=== PATIENT | female | born 1945 | race Caucasian/White ===

== ENCOUNTER 2019-12-01 15:05 | Observation (INO) ==
[2019-12-01] MEDS ORDERED: Naloxone 0.4 MG/ML INJ IVP PRN (20:11)
[2019-12-01] MEDS ORDERED: Acetaminophen 325 MG TABLET PO PRN (20:24)
[2019-12-01] MEDS ORDERED: *HR* Promethazine 25 MG/ML VIAL IVP PRN (20:24)
[2019-12-01] MEDS: 0.9 % Sodium Chloride 1,000 ML IVC SCH (20:56)
[2019-12-01] MEDS ORDERED: QUEtiapine Fumarate 25 MG TABLET PO SCH ×3 (21:00→22:15)
[2019-12-01] MEDS: FLUoxetine HCl 10 MG CAPSULE PO SCH (22:38)
[2019-12-02] MEDS: FLUoxetine HCl 10 MG CAPSULE PO SCH ×2 (10:10→21:17)
[2019-12-02] MEDS: Furosemide 40 MG TABLET PO SCH (10:10)
[2019-12-02] MEDS: 0.9 % Sodium Chloride 1,000 ML IVC SCH (10:11)
[2019-12-02] MEDS: Silver Sulfadiazine 50 GM TUBE TP SCH (10:53)
[2019-12-02 12:27] LABS: INR 1.1; Prothrombin Time 12.2 Seconds (9.4-12.1)
[2019-12-02 12:38] LABS: Calcium 9.2 mg/dL (8.6-10.3); Magnesium 2.1 mg/dL (1.6-2.6); Potassium 4.3 mEq/L (3.5-5.1)
[2019-12-02 14:02] LABS: Bilirubin,Urine Negative (Negative); Blood,Urine Trace-intact (Negative); Clarity,Urine Clear (Clear); Color,Urine Yellow (Yellow); Glucose,Urine (UA) Normal (Normal); Ketones,Urine Negative (Negative); Leukocyte Esterase,Urine Negative (Negative); Nitrite,Urine Negative (Negative); Protein,Urine Negative (Neg-Trace); Specific Gravity,Urine 1.025 (1.010-1.025); Urobilinogen,Urine Normal (Normal)
[2019-12-02 14:09] LABS: Bacteria,Urine Few per hpf (None-Few); Hyaline Casts,Urine Few per lpf (None Seen); Mucus,Urine Few per lpf (None-Few); Squamous Epithelial Cell,Urine Few per hpf (None-Few); WBC,Urine 0-3 per hpf (0-3)
[2019-12-02] MEDS ORDERED: 0.9 % Sodium Chloride 1,000 ML IVC SCH (16:15)
[2019-12-02] MEDS ORDERED: Haloperidol Lactate 5 MG/ML VIAL IVP PRN (16:19)
[2019-12-02] MEDS ORDERED: QUEtiapine Fumarate 25 MG TABLET PO SCH (21:00)
[2019-12-02 21:07] LABS: Basophils % 0.5 %; Eosinophils # 0.2 K/mcL (0.0-0.6); Eosinophils % 2.6 %; Hematocrit 42.7 % (35.3-44.9); Hemoglobin 13.9 g/dL (11.5-15.4); Immature Granulocytes % 0.2 % (0-4); Lymphocytes # 1.4 K/mcL (0.6-4.6); Lymphocytes % 21.6 %; Mean Corpuscular HGB Conc 32.6 g/dL (31.6-35.5); Mean Corpuscular Hemoglobin 29.1 pg (28.0-33.3); Mean Corpuscular Volume 89.3 fL (83.0-100.0); Mean Platelet Volume 10.8 fL (9.4-12.4); Monocytes # 0.7 K/mcL (0.0-1.3); Monocytes % 10.4 %; Neutrophils # 4.2 K/mcL (1.6-8.9); Platelet Count 201 K/mcL (140-400); Red Blood Count 4.78 M/mcL (3.82-4.97); Red Cell Distribution Width 13.8 % (11.5-14.5); Segmented Neutrophils % 64.7 %; White Blood Count 6.4 K/mcL (4.3-11.1)
[2019-12-03 09:07] LABS: Hematocrit 44.5 % (35.3-44.9); Hemoglobin 14.5 g/dL (11.5-15.4); Mean Corpuscular HGB Conc 32.6 g/dL (31.6-35.5); Mean Corpuscular Hemoglobin 29.5 pg (28.0-33.3); Mean Corpuscular Volume 90.4 fL (83.0-100.0); Mean Platelet Volume 10.7 fL (9.4-12.4); Platelet Count 193 K/mcL (140-400); Red Blood Count 4.92 M/mcL (3.82-4.97); Red Cell Distribution Width 13.8 % (11.5-14.5); White Blood Count 6.9 K/mcL (4.3-11.1)
[2019-12-03 09:26] LABS: Calcium 9.3 mg/dL (8.6-10.3); Potassium 3.8 mEq/L (3.5-5.1)
[2019-12-03] MEDS: FLUoxetine HCl 10 MG CAPSULE PO SCH (09:34)
[2019-12-03] MEDS: Silver Sulfadiazine 50 GM TUBE TP SCH (09:34)
[2019-12-03] MEDS: Furosemide 40 MG TABLET PO SCH (09:34)
[2019-12-03 10:28] VITALS: BP 127/87
== END 2019-12-03 17:07 | disposition home health service (06) ==
LOC: 3ANU → SUATTDRO 17:43
PROVIDERS: ADMIT Student in an Organized Health Care Education/Training Program; ATTEND Family Medicine

== ENCOUNTER 2020-04-16 14:54 | Inpatient (IN) ==
[2020-04-16] MEDS ORDERED: Naloxone 0.4 MG/ML INJ IVP PRN (16:21)
[2020-04-16] MEDS ORDERED: Ondansetron 4 MG/2 ML VIAL IVP PRN (16:21)
[2020-04-16] MEDS ORDERED: Vancomycin 1,500 MG/265 ML IV.SOLN IVPB ONE (17:00)
[2020-04-16] MEDS: Acetaminophen 325 MG TABLET PO PRN (19:38)
[2020-04-16] MEDS ORDERED: QUEtiapine Fumarate 25 MG TABLET PO SCH (21:00)
[2020-04-16] MEDS: Cefepime HCl 2,000 MG in 0.9 % Sodium Chloride Mini Bag 100 ML IVPB SCH (23:01)
[2020-04-17 05:47] LABS: Hematocrit 37.4 % (35.3-44.9); Hemoglobin 11.8 g/dL (11.5-15.4); Mean Corpuscular HGB Conc 31.6 g/dL (31.6-35.5); Mean Corpuscular Hemoglobin 27.6 pg (28.0-33.3); Mean Corpuscular Volume 87.6 fL (83.0-100.0); Mean Platelet Volume 10.8 fL (9.4-12.4); Platelet Count 170 K/mcL (140-400); Red Blood Count 4.27 M/mcL (3.82-4.97); Red Cell Distribution Width 14.5 % (11.5-14.5); White Blood Count 9.8 K/mcL (4.3-11.1)
[2020-04-17 05:55] LABS: INR 3.3; Prothrombin Time 36.8 Seconds (9.4-12.1)
[2020-04-17 06:05] LABS: Calcium 8.8 mg/dL (8.6-10.3); Potassium 3.5 mEq/L (3.5-5.1)
[2020-04-17] MEDS: Cefepime HCl 2,000 MG in 0.9 % Sodium Chloride Mini Bag 100 ML IVPB SCH (07:44)
[2020-04-17] MEDS: QUEtiapine Fumarate 25 MG TABLET PO SCH ×4 (09:44→20:11)
[2020-04-17] MEDS ORDERED: Vancomycin 1,500 MG/265 ML IV.SOLN IVPB SCH (10:00)
[2020-04-17] MEDS: Acetaminophen 325 MG TABLET PO PRN (10:21)
[2020-04-17] MEDS: Silver Sulfadiazine 50 GM TUBE TP SCH (11:13)
[2020-04-17] MEDS ORDERED: Furosemide 20 MG TABLET PO ONE (11:25)
[2020-04-17] MEDS ORDERED: Warfarin perPT PO PRN (18:00)
[2020-04-17] MEDS: Cefepime HCl 2,000 MG in Water for inj. (sterile) 20 ML IVP SCH (18:35)
[2020-04-17] MEDS: Vancomycin 1,250 MG/262.5 ML IV.SOLN IVPB SCH (22:09)
[2020-04-18 03:48] LABS: Basophils % 0.4 %; Eosinophils # 0.2 K/mcL (0.0-0.6); Hematocrit 35.4 % (35.3-44.9); Hemoglobin 10.9 g/dL (11.5-15.4); Immature Granulocytes % 0.4 % (0-4); Lymphocytes % 19.6 %; Mean Corpuscular HGB Conc 30.8 g/dL (31.6-35.5); Mean Corpuscular Hemoglobin 27.5 pg (28.0-33.3); Mean Corpuscular Volume 89.2 fL (83.0-100.0); Monocytes # 0.5 K/mcL (0.0-1.3); Monocytes % 9.9 %; Neutrophils # 3.3 K/mcL (1.6-8.9); Platelet Count 163 K/mcL (140-400); Red Blood Count 3.97 M/mcL (3.82-4.97); Red Cell Distribution Width 14.6 % (11.5-14.5); Segmented Neutrophils % 65.7 %; White Blood Count 5.1 K/mcL (4.3-11.1)
[2020-04-18 03:59] LABS: INR 2.6; Prothrombin Time 29.3 Seconds (9.4-12.1)
[2020-04-18 04:06] LABS: Calcium 8.5 mg/dL (8.6-10.3); Magnesium 2.3 mg/dL (1.6-2.6); Phosphorous 2.8 mg/dL (2.7-4.5); Potassium 3.6 mEq/L (3.5-5.1)
[2020-04-18] MEDS: Cefepime HCl 2,000 MG in Water for inj. (sterile) 20 ML IVP SCH ×2 (06:02→16:50)
[2020-04-18] MEDS: QUEtiapine Fumarate 25 MG TABLET PO SCH ×4 (09:00→20:33)
[2020-04-18] MEDS: Silver Sulfadiazine 50 GM TUBE TP SCH (09:01)
[2020-04-18] MEDS: Vancomycin 1,250 MG/262.5 ML IV.SOLN IVPB SCH ×2 (11:00→20:33)
[2020-04-18] MEDS: Furosemide 20 MG TABLET PO SCH ×2 (13:25→20:32)
[2020-04-18] MEDS: Cholecalciferol (D-3) 1,000 UNIT (25MCG) TABLET PO SCH (13:25)
[2020-04-18] MEDS ORDERED: *HR* Warfarin 5 MG TABLET PO ONE (18:00)
[2020-04-19 05:28] LABS: INR 1.7; Prothrombin Time 19.3 Seconds (9.4-12.1)
[2020-04-19] MEDS: Cefepime HCl 2,000 MG in Water for inj. (sterile) 20 ML IVP SCH ×2 (05:30→17:44)
[2020-04-19] MEDS: Cholecalciferol (D-3) 1,000 UNIT (25MCG) TABLET PO SCH (08:19)
[2020-04-19] MEDS: QUEtiapine Fumarate 25 MG TABLET PO SCH ×4 (08:19→22:24)
[2020-04-19] MEDS: Furosemide 20 MG TABLET PO SCH ×2 (08:20→17:44)
[2020-04-19] MEDS: Silver Sulfadiazine 50 GM TUBE TP SCH ×2 (08:20→08:24)
[2020-04-19 10:29] LABS: Vancomycin,Trough 22 mcg/mL (5-10)
[2020-04-19] MEDS: Vancomycin 1,250 MG/262.5 ML IV.SOLN IVPB SCH ×2 (11:00→11:03)
[2020-04-19 11:27] LABS: BUN/Creatinine Ratio 14 (6-26); Blood Urea Nitrogen 15 mg/dL (8-23); eGFR For African Americans > 60 (> 60); eGFR For Non-African Americans 52 (> 60)
[2020-04-19] MEDS ORDERED: *HR* Warfarin 7.5 MG TABLET PO ONE (18:00)
[2020-04-19] MEDS ORDERED: Vancomycin 1,250 MG/262.5 ML IV.SOLN IVPB SCH ×2 (22:00)
[2020-04-20] MEDS: Cefepime HCl 2,000 MG in Water for inj. (sterile) 20 ML IVP SCH (05:26)
[2020-04-20 07:23] VITALS: BP 153/87
[2020-04-20] MEDS: Furosemide 20 MG TABLET PO SCH (07:55)
[2020-04-20] MEDS: QUEtiapine Fumarate 25 MG TABLET PO SCH (07:55)
[2020-04-20] MEDS: Cholecalciferol (D-3) 1,000 UNIT (25MCG) TABLET PO SCH (07:55)
[2020-04-20] MEDS: Silver Sulfadiazine 50 GM TUBE TP SCH (07:56)
[2020-04-20 10:21] LABS: INR 1.6; Prothrombin Time 18.6 Seconds (9.4-12.1)
[2020-04-20] MEDS ORDERED: *HR* Warfarin 7.5 MG TABLET PO ONE (18:00)
== END 2020-04-20 14:38 | DRG 871 ==
LOC: 3BNU 14:54 → EMEROOARM 14:54 → SUATTDRO 18:12 → 3BNU 18:36
PROVIDERS: ADMIT Internal Medicine; ATTEND Internal Medicine

== ENCOUNTER 2020-04-20 16:15 | Observation (INO) ==
[2020-04-20 17:29] LABS: Basophils % 0.4 %; Eosinophils # 0.5 K/mcL (0.0-0.6); Eosinophils % 6.3 %; Hematocrit 40.4 % (35.3-44.9); Immature Granulocytes % 0.3 % (0-4); Lymphocytes # 1.5 K/mcL (0.6-4.6); Lymphocytes % 20.6 %; Mean Corpuscular HGB Conc 31.4 g/dL (31.6-35.5); Mean Corpuscular Volume 89.2 fL (83.0-100.0); Mean Platelet Volume 10.5 fL (9.4-12.4); Monocytes # 0.6 K/mcL (0.0-1.3); Monocytes % 8.3 %; Neutrophils # 4.6 K/mcL (1.6-8.9); Platelet Count 226 K/mcL (140-400); Red Blood Count 4.53 M/mcL (3.82-4.97); Red Cell Distribution Width 14.4 % (11.5-14.5); Segmented Neutrophils % 64.1 %; White Blood Count 7.1 K/mcL (4.3-11.1)
[2020-04-20 17:30] LABS: Hemoglobin 12.7 g/dL (11.5-15.4)
[2020-04-20 17:49] LABS: Calcium 9.2 mg/dL (8.6-10.3); Potassium 3.6 mEq/L (3.5-5.1)
[2020-04-20] MEDS ORDERED: Ziprasidone 10 MG in Water for inj. (sterile) 0.5 ML IM ONE (18:34)
[2020-04-20] MEDS ORDERED: Naloxone 0.4 MG/ML INJ IVP PRN (19:30)
[2020-04-20] MEDS ORDERED: Acetaminophen 325 MG TABLET PO PRN (19:30)
[2020-04-20 19:54] LABS: INR 1.6; Prothrombin Time 18.8 Seconds (9.4-12.1)
[2020-04-20] MEDS ORDERED: QUEtiapine Fumarate 25 MG TABLET PO SCH (21:00)
[2020-04-20] MEDS: cefTRIAXone 1,000 MG in 0.9 % Sodium Chloride Mini Bag 100 ML IVPB SCH (21:26)
[2020-04-21 02:08] LABS: Basophils % 0.5 %; Eosinophils # 0.4 K/mcL (0.0-0.6); Eosinophils % 6.8 %; Hematocrit 39.5 % (35.3-44.9); Hemoglobin 12.3 g/dL (11.5-15.4); Immature Granulocytes % 0.2 % (0-4); Lymphocytes # 1.2 K/mcL (0.6-4.6); Lymphocytes % 20.6 %; Mean Corpuscular HGB Conc 31.1 g/dL (31.6-35.5); Mean Corpuscular Hemoglobin 27.4 pg (28.0-33.3); Mean Platelet Volume 10.4 fL (9.4-12.4); Monocytes # 0.6 K/mcL (0.0-1.3); Monocytes % 11.1 %; Neutrophils # 3.4 K/mcL (1.6-8.9); Platelet Count 228 K/mcL (140-400); Red Blood Count 4.49 M/mcL (3.82-4.97); Red Cell Distribution Width 14.5 % (11.5-14.5); Segmented Neutrophils % 60.8 %; White Blood Count 5.6 K/mcL (4.3-11.1)
[2020-04-21 02:33] LABS: Albumin 3.4 g/dL (3.5-5.7); Albumin/Globulin Ratio 1.1 (1.1-2.2); Bilirubin,Total 0.4 mg/dL (0.3-1.0); Globulin 3.2 g/dL (2.4-3.5); Magnesium 2.1 mg/dL (1.6-2.6); Phosphorous 3.2 mg/dL (2.7-4.5); Potassium 3.7 mEq/L (3.5-5.1); Total Protein 6.6 g/dL (6.4-8.9)
[2020-04-21] MEDS: cefTRIAXone 1,000 MG in 0.9 % Sodium Chloride Mini Bag 100 ML IVPB SCH (08:05)
[2020-04-21] MEDS: Cholecalciferol (D-3) 1,000 UNIT (25MCG) TABLET PO SCH (08:05)
[2020-04-21] MEDS: Multivit/Ca/Min/Fe/FA 1 TAB TABLET PO SCH (08:05)
[2020-04-21] MEDS: QUEtiapine Fumarate 25 MG TABLET PO SCH ×3 (08:05→22:32)
[2020-04-21] MEDS ORDERED: QUEtiapine Fumarate 25 MG TABLET PO SCH (09:00)
[2020-04-21] MEDS ORDERED: Multivit/Ca/Min/Fe/FA 1 TAB TABLET PO SCH (09:00)
[2020-04-21] MEDS: Silver Sulfadiazine 50 GM TUBE TP SCH (09:09)
[2020-04-21 09:22] LABS: INR 1.7; Prothrombin Time 19.2 Seconds (9.4-12.1)
[2020-04-21 16:45] LABS: Bilirubin,Urine Negative (Negative); Blood,Urine Small (Negative); Clarity,Urine Clear (Clear); Color,Urine Yellow (Yellow); Glucose,Urine (UA) Normal (Normal); Ketones,Urine Negative (Negative); Leukocyte Esterase,Urine Negative (Negative); Mucus,Urine Few per lpf (None-Few); Nitrite,Urine Negative (Negative); PH,Urine 6.5 pH Units (5.0-8.0); Protein,Urine 50 mg/dL (Neg-Trace); Specific Gravity,Urine 1.023 (1.010-1.025); Squamous Epithelial Cell,Urine Few per hpf (None-Few); Urobilinogen,Urine Normal (Normal); WBC,Urine 0-3 per hpf (0-3)
[2020-04-21] MEDS: Furosemide 20 MG TABLET PO SCH (17:15)
[2020-04-21] MEDS ORDERED: *HR* Warfarin 5 MG TABLET PO ONE (18:00)
[2020-04-21] MEDS ORDERED: Warfarin perPT PO PRN (18:00)
[2020-04-22] MEDS: QUEtiapine Fumarate 25 MG TABLET PO PRN (02:09)
[2020-04-22 04:15] LABS: INR 1.6; Prothrombin Time 18.8 Seconds (9.4-12.1)
[2020-04-22 04:28] LABS: Basophils % 0.5 %; Eosinophils # 0.3 K/mcL (0.0-0.6); Eosinophils % 4.9 %; Hematocrit 40.1 % (35.3-44.9); Hemoglobin 12.3 g/dL (11.5-15.4); Immature Granulocytes % 0.2 % (0-4); Lymphocytes % 16.7 %; Mean Corpuscular HGB Conc 30.7 g/dL (31.6-35.5); Mean Corpuscular Hemoglobin 27.2 pg (28.0-33.3); Mean Corpuscular Volume 88.7 fL (83.0-100.0); Mean Platelet Volume 10.8 fL (9.4-12.4); Monocytes # 0.5 K/mcL (0.0-1.3); Monocytes % 8.8 %; Neutrophils # 4.2 K/mcL (1.6-8.9); Platelet Count 230 K/mcL (140-400); Red Blood Count 4.52 M/mcL (3.82-4.97); Red Cell Distribution Width 14.6 % (11.5-14.5); Segmented Neutrophils % 68.9 %; White Blood Count 6.1 K/mcL (4.3-11.1)
[2020-04-22 04:33] LABS: Calcium 8.8 mg/dL (8.6-10.3)
[2020-04-22] MEDS: Cholecalciferol (D-3) 1,000 UNIT (25MCG) TABLET PO SCH (07:19)
[2020-04-22] MEDS: Furosemide 20 MG TABLET PO SCH ×2 (07:19→17:45)
[2020-04-22] MEDS: Silver Sulfadiazine 50 GM TUBE TP SCH (07:20)
[2020-04-22] MEDS: cefTRIAXone 1,000 MG in 0.9 % Sodium Chloride Mini Bag 100 ML IVPB SCH (07:20)
[2020-04-22] MEDS: Multivit/Ca/Min/Fe/FA 1 TAB TABLET PO SCH (07:20)
[2020-04-22] MEDS: Nystatin POWDER 30 GM BOTTLE TP SCH ×2 (17:46→20:15)
[2020-04-22] MEDS ORDERED: *HR* Warfarin 7.5 MG TABLET PO ONE (18:00)
[2020-04-22] MEDS: QUEtiapine Fumarate 25 MG TABLET PO SCH (20:15)
[2020-04-23 01:41] LABS: INR 1.8
[2020-04-23] MEDS: Multivit/Ca/Min/Fe/FA 1 TAB TABLET PO SCH (07:41)
[2020-04-23] MEDS: Furosemide 20 MG TABLET PO SCH ×2 (07:42→16:58)
[2020-04-23] MEDS: cefTRIAXone 1,000 MG in 0.9 % Sodium Chloride Mini Bag 100 ML IVPB SCH (07:42)
[2020-04-23] MEDS: Cholecalciferol (D-3) 1,000 UNIT (25MCG) TABLET PO SCH (07:42)
[2020-04-23] MEDS: Silver Sulfadiazine 50 GM TUBE TP SCH (07:42)
[2020-04-23] MEDS: Nystatin POWDER 30 GM BOTTLE TP SCH ×3 (07:43→20:28)
[2020-04-23] MEDS ORDERED: *HR* LORazepam 2 MG/ML VIAL IVP ONE (17:21)
[2020-04-23] MEDS ORDERED: *HR* Warfarin 5 MG TABLET PO ONE (18:00)
[2020-04-23] MEDS: QUEtiapine Fumarate 25 MG TABLET PO SCH (20:21)
[2020-04-24 04:35] LABS: Basophils % 0.6 %; Eosinophils # 0.3 K/mcL (0.0-0.6); Eosinophils % 5.7 %; Hematocrit 39.1 % (35.3-44.9); Hemoglobin 12.2 g/dL (11.5-15.4); Immature Granulocytes % 0.4 % (0-4); Lymphocytes # 1.2 K/mcL (0.6-4.6); Mean Corpuscular HGB Conc 31.2 g/dL (31.6-35.5); Mean Corpuscular Hemoglobin 28.2 pg (28.0-33.3); Mean Corpuscular Volume 90.5 fL (83.0-100.0); Monocytes # 0.7 K/mcL (0.0-1.3); Monocytes % 13.2 %; Platelet Count 198 K/mcL (140-400); Red Blood Count 4.32 M/mcL (3.82-4.97); Red Cell Distribution Width 14.6 % (11.5-14.5); Segmented Neutrophils % 58.1 %; White Blood Count 5.2 K/mcL (4.3-11.1)
[2020-04-24 04:38] LABS: INR 2.4; Prothrombin Time 27.3 Seconds (9.4-12.1)
[2020-04-24 04:57] LABS: Potassium 3.7 mEq/L (3.5-5.1)
[2020-04-24 07:45] VITALS: BP 120/74
[2020-04-24] MEDS: QUEtiapine Fumarate 25 MG TABLET PO PRN (08:49)
[2020-04-24] MEDS: Multivit/Ca/Min/Fe/FA 1 TAB TABLET PO SCH (08:49)
[2020-04-24] MEDS: cefTRIAXone 1,000 MG in 0.9 % Sodium Chloride Mini Bag 100 ML IVPB SCH (08:49)
[2020-04-24] MEDS: Cholecalciferol (D-3) 1,000 UNIT (25MCG) TABLET PO SCH (08:49)
[2020-04-24] MEDS: Furosemide 20 MG TABLET PO SCH (08:49)
[2020-04-24] MEDS: Silver Sulfadiazine 50 GM TUBE TP SCH (08:50)
[2020-04-24] MEDS: Nystatin POWDER 30 GM BOTTLE TP SCH (08:50)
== END 2020-04-24 12:14 ==
LOC: EMEROOARM 16:15 → 3ANU 16:15 → SUATTDRO 19:26 → 3ANU 21:03
PROVIDERS: ADMIT Student in an Organized Health Care Education/Training Program; ATTEND Family Medicine